=== PATIENT | male | born 1970 | race Hispanic/Latino ===

== ENCOUNTER 2018-03-24 23:35 | Emergency (ER) | payer MEDICAID ==
[2018-03-24 23:45] VITALS: RESP 18
[2018-03-25] MEDS ORDERED: Albuterol 0.083% Inhal Sol (2.5 mg/3 mL) UD INH ONE (03:17)
--- NOTE | 2018-03-25 03:19 | ED PDOC ---
HPI: General Adult Time Seen by Provider: 03/25/18 00:00 Chief Complaint (Nursing): Flu-like Symptoms Chief Complaint (Provider): Flu-like Symptoms History Per: Patient History/Exam Limitations: no limitations Additional Complaint(s): 47 years old male with history of hernia presents to ER for evaluation of congestion and toothache. Patient is homeless and reports he has been on a bus all day. He admits to drinking and smoking daily and states his last drink was at 1 pm yesterday. Patient is requesting pain medication and he is sleeping in the ER. PMD: non provided Past Medical History Reviewed: Historical Data, Nursing Documentation, Vital Signs Vital Signs: Last Vital Signs Temp 98.2 F 03/24/18 23:42 Pulse 81 03/24/18 23:42 Resp 18 03/24/18 23:42 BP 120/70 03/24/18 23:42 Pulse Ox 97 03/24/18 23:42 - Medical History PMH: No Chronic Diseases - Surgical History Other surgeries: Hernia - Family History Family History: States: Unknown Family Hx - Social History Current smoker - smoking cessation education provided: Yes Alcohol: Social Drugs: Denies - Allergies Allergies/Adverse Reactions: Allergies Allergy/AdvReac Type Severity Reaction Status Date / Time No Known Allergies Allergy Verified 03/24/18 23:42 Review of Systems ROS Statement: Except As Marked, All Systems Reviewed And Found Negative ENT: Positive for: Nose Congestion, Other (Toothache) Physical Exam - Reviewed Nursing Documentation Reviewed: Yes Vital Signs Reviewed: Yes - Physical Exam Appears: Positive for: Non-toxic, No Acute Distress Head Exam: Positive for: ATRAUMATIC, NORMOCEPHALIC Skin: Positive for: Normal Color, Warm, Dry Eye Exam: Positive for: Normal appearance ENT: Positive for: Normal ENT Inspection Cardiovascular/Chest: Positive for: Regular Rate, Rhythm. Negative for: Murmur Respiratory: Positive for: Rhonchi. Negative for: Wheezing Gastrointestinal/Abdominal: Positive for: Soft Extremity: Positive for: Normal ROM Neurologic/Psych: Positive for: Alert, Oriented (x3) - ECG O2 Sat by Pulse Oximetry: 97 (RA) Pulse Ox Interpretation: Normal Medical Decision Making Medical Decision Making: Time: 255 Initial Plan: pain, requesting nebulizer treatment --Alcohol serum --Albuterol 2.5 mg INH --Tylenol 650 mg Po --Peak flow pre/post treatment 5 am pt feels better, has been sleeping in the ER and hasnt verbalized any complaints while in the er. awake alert, stable gait, in no distress. stable for dc Scribe Attestation: Documented by Zora Cabrera, acting as a scribe for Fabian Culver MD. Provider Scribe Attestation: All medical record entries made by the Scribe were at my direction and personally dictated by me. I have reviewed the chart and agree that the record accurately reflects my personal performance of the history, physical exam, medical decision making, and the department course for this patient. I have also personally directed, reviewed, and agree with the discharge instructions and disposition. Disposition - Clinical Impression Clinical Impression: Whole body pain - Disposition Referrals: [facility] [Outside] [facility] [Outside] Disposition: Routine/Home Disposition Time: 05:00 Condition: IMPROVED Additional Instructions: follow up with your primary doctor in 1-2 days return to the ED with any worsening or concerning symptoms Instructions: Acute Pain, Adult (DC) Forms: Runner (Portuguese)
[2018-03-25] MEDS ORDERED: Albuterol 0.083% Inhal Sol (2.5 mg/3 mL) UD ONE (03:32)
[2018-03-25 06:29] VITALS: BP 130/75; PULSE 67; TEMP 97.9; O2SAT 99
== END 2018-03-25 06:42 | disposition home or self-care (01) ==
LOC: H.ER 23:35
DX: M79.18 Myalgia, other site (principal); Z59.0 Homelessness; F17.200 Nicotine dependence, unspecified, uncomplicated